=== PATIENT | male | born 1945 | race Caucasian/White ===

== ENCOUNTER 2017-10-03 07:37 | Day surgery (SDC) | payer OTHER ==
[~2017-10-03] VITALS: Ht 170.2 cm; Wt 95.3 kg
[~2017-10-03 07:37] MED LIST: SYNTHROID125 MCG PO
[2017-10-03] MEDS ORDERED: CLARITIN10 M2 PO (08:00)
[2017-10-03] MEDS ORDERED: VENTOLIN HFA18 GM INH (08:01)
[2017-10-03] MEDS ORDERED: BAYER CHEWABLE81 MG PO (08:02)
--- NOTE | 2017-10-03 09:37 | NUR ---
10/03/17 0937 Merline Hoffman 0975-PATIENT ARRIVED TO PACU ON 2L NC O2 SAT 99% PATIENT REACTIVE TO VOICE OPENS EYES DROWSY. ABDOMEN ROUND AND SOFT. RR EVEN.
--- NOTE | 2017-10-04 10:24 | OR ---
[facility] [address] [place], [place] [address] Signed DATE OF OPERATION: 10/03/2017 SURGEON: Chelo Talamantes MD PREOPERATIVE DIAGNOSIS: Personal history of hyperplastic polyps in 2005. POSTOPERATIVE DIAGNOSES: 1. A 4-mm prostate nodule. 2. A 3-mm cecal polyp. 3. A 3-mm polyp, ileocecal valve. 4. A 4-mm polyp, proximal right colon. 5. A 5-mm polyp at 20 cm. 6. Moderate external and internal hemorrhoids. 7. Moderate left-sided diverticulosis. PROCEDURE PERFORMED: Colonoscopy without biopsy. ESTIMATED BLOOD LOSS: None. INDICATIONS FOR PROCEDURE: Slick is a 72-year-old gentleman, who had hyperplastic polyps removed back in 2005. He returns now for his followup colonoscopy. He said he has no lower GI complaints. There is no family history of colon cancer or polyps. I gave him a pamphlet on colonoscopy. We looked at that together along with the risks including, but not limited to gas bloating, crampy abdominal pain, bleeding, perforation, requiring surgery, and missed diagnosis. We also discussed the need for IV conscious sedation. He had expressed understanding and wished to proceed. PROCEDURE NOTE: Jean was taken into our endoscopy suite and placed in the left lateral decubitus position. He was given 6 mg of Versed and 100 mcg of fentanyl to cover the case. A digital rectal exam was performed and he does have a 4-mm prostate nodule in the inferior portion of the prostate somewhat in the midline. This should definitely be evaluated more thoroughly. The adult colonoscope was then introduced and advanced all around into the cecum under direct visualization of the camera without difficulty. His prep was good. The scope was slowly withdrawn. The above-mentioned polyps were easily removed with the help of hot biopsy forceps. We also noticed he has moderate left-sided Electronically Signed By: CHELO TALAMANTES MD 10/04/17 [facility] PATIENT NAME: SLICK ASHTON OPERATIVE REPORT DATE OF : 49 REPORT #: [id number] PHYSICIAN: CHELO TALAMANTES MD PCP: CICI MATTSON MD REPORT IS CONFIDENTIAL AND NOT TO BE RELEASED WITHOUT AUTHORIZATION [facility] [address] [place], [place] [address] Signed diverticulosis. They are moderate in size, moderate in number, and scattered about. Once in the rectum, the scope had been retroflexed and he does have some internal hemorrhoid columns. They were [id number], but the external hemorrhoid columns were definitely moderate in size. After this, the gas was suctioned out and the colonoscope removed. Jean tolerated the procedure quite well. RECOMMENDATIONS: I will see Jean back in my office in 7 to 14 days to review his pathology results. He needs to have his prostate nodule further evaluated. Chelo Talamantes MD ALB/MODL /[id number] cc: BREANNA Pearson MD Patient's Chart Cici Mattson MD Copies: ADOLPH ROMERO NP, ANDREW L MD HARRISON, RUSSELL BARR MD ~ Electronically Signed By: CHELO TALAMANTES MD 10/04/17 1024 PATIENT NAME: SLICK ASHTON OPERATIVE REPORT DATE OF : 49 REPORT #: [id number] PHYSICIAN: CHELO TALAMANTES MD PCP: CICI MATTSON MD REPORT IS CONFIDENTIAL AND NOT TO BE RELEASED WITHOUT AUTHORIZATION
== END 2017-10-03 10:13 | disposition home or self-care (01) ==
LOC: DS 07:37 → OPS 07:37 → DS 09:45 → OPS 09:45
PROVIDERS: Colon & Rectal Surgery
PROC: 0DBE8ZZ Excision of Large Intestine, Via Natural or Artificial Opening Endoscopic (ICD-10-PCS; 2017-10-03)
PROC: 0DBF8ZZ Excision of Right Large Intestine, Via Natural or Artificial Opening Endoscopic (ICD-10-PCS; 2017-10-03)
PROC: 0DBC8ZZ Excision of Ileocecal Valve, Via Natural or Artificial Opening Endoscopic (ICD-10-PCS; 2017-10-03)
PROC: 0DBH8ZZ Excision of Cecum, Via Natural or Artificial Opening Endoscopic (ICD-10-PCS; principal; 2017-10-03 09:15)
DX: Z12.11 Encounter for screening for malignant neoplasm of colon (principal); D12.2 Benign neoplasm of ascending colon; D12.0 Benign neoplasm of cecum; K63.5 Polyp of colon; K64.8 Other hemorrhoids; K64.4 Residual hemorrhoidal skin tags; N40.2 Nodular prostate without lower urinary tract symptoms; K57.30 Diverticulosis of large intestine without perforation or abscess without bleeding; J45.909 Unspecified asthma, uncomplicated; E78.5 Hyperlipidemia, unspecified; E03.9 Hypothyroidism, unspecified; M19.90 Unspecified osteoarthritis, unspecified site; Z98.890 Other specified postprocedural states; Z86.010 Personal history of colon polyps; Z79.82 Long term (current) use of aspirin; Z79.899 Other long term (current) drug therapy
CPT/HCPCS: 99153; G0500; J2250; J3010; J7120

== ENCOUNTER 2024-05-27 06:00 | Day surgery (SDC) | payer MEDICARE, OTHER ==
[2024-05-20 09:40] VITALS: BP 128/74
[~2024-05-27] VITALS: Ht 170.2 cm; Wt 77.3 kg
[~2024-05-27 06:00] MED LIST changes: +ASMANEX220 MC2 INH; +BAYER CHEWABLE81 MG PO; +CLARITIN10 M2 PO; +LACTATED RINGER'S 1,000 ML IV SCH; +LIPITOR40 MG PO; +OMEPRAZOLE20 M1 PO; +VENTOLIN HFA18 GM INH
[2024-05-27 06:19] VITALS: BP 129/71
[2024-05-27] MEDS ORDERED: iopamidoL 30 ML VIAL ONE (06:21)
[2024-05-27] MEDS ORDERED: LIDOCAINE 1% W/ EPI 1:200,000 30 ML SDV ONE (06:22)
[2024-05-27] MEDS ORDERED: SODIUM CHLORIDE 0.9% 40 ML IV ONE (06:22)
[2024-05-27] MEDS ORDERED: BUPIVACAINE HCL 0.25% 50 ML MDV ONE (06:23)
[2024-05-27] MEDS ORDERED: CEFAZOLIN SODIUM 2 GM/20 ML SYR IV SCH (07:00)
[2024-05-27] MEDS ORDERED: HEParin SOD (PORCINE) 5,000 UNIT/ML SDV SUB-Q SCH (07:00)
[2024-05-27] MEDS ORDERED: LIDOCAINE HCL 1% 5 ML SDV INJ ONE (07:00)
[2024-05-27] MEDS ORDERED: metroNIDAZOLE/SODIUM CHLORIDE 500 MG/100 ML PIGGYBACK IV SCH (07:00)
[2024-05-27] MEDS ORDERED: IBLOOD GLUCOSE TEST STRIP 1 EA TEST VI PRN ×2 (07:00→08:00)
[2024-05-27] MEDS ORDERED: DEXAMETHASONE SOD PHOS 4 MG/ML VIAL ONE (07:20)
[2024-05-27] MEDS ORDERED: SUCCINYLCHOLINE IN 0.9% NACL 200 MG/10 ML SYRINGE ONE (07:20)
[2024-05-27] MEDS ORDERED: ROCURONIUM BROMIDE 50 MG/5 ML SYR ONE (07:20)
[2024-05-27] MEDS ORDERED: SUGAMMADEX SODIUM 200 MG/2 ML ML ONE (07:20)
[2024-05-27] MEDS ORDERED: KETOROLAC TROMETHAMINE 30 MG/ML VIAL ONE (07:20)
[2024-05-27] MEDS ORDERED: ondansetron HCL 4 MG/2 ML VIAL ONE (07:20)
[2024-05-27] MEDS ORDERED: ACETAMINOPHEN 1,000 MG/100 ML VIAL ONE (07:20)
[2024-05-27] MEDS ORDERED: LIDOCAINE HCL 2% 5 ML SDV ONE (07:20)
[2024-05-27] MEDS ORDERED: fentaNYL citrate 100 MCG/2 ML VIAL ONE ×2 (07:20→08:10)
[2024-05-27] MEDS ORDERED: propofoL 200 MG/20 ML VIAL ONE (07:20)
[2024-05-27] MEDS ORDERED: LIDOCAINE HCL 2% 20 MG/ML VIAL INJ ONE (07:20)
[2024-05-27] MEDS ORDERED: NALOXONE HCL 0.4 MG SYR IV PRN ×2 (08:00→09:00)
[2024-05-27] MEDS ORDERED: fentaNYL citrate 50 MCG/ML SDV IV PRN (08:00)
[2024-05-27] MEDS ORDERED: PROCHLORPERAZINE EDISYLATE 10 MG/2 ML VIAL IV PRN (08:00)
[2024-05-27] MEDS ORDERED: droPERidol 5 MG/2 ML VIAL IV PRN (08:00)
[2024-05-27] MEDS ORDERED: HYDROmorphone HCL 1 MG/ML SYR IV PRN ×2 (08:00→09:00)
[2024-05-27] MEDS ORDERED: ondansetron HCL 4 MG/2 ML VIAL IV PRN ×2 (08:00→09:00)
[2024-05-27] MEDS ORDERED: OXYCODONE HCL 5 MG TAB PO PRN (09:00)
--- NOTE | 2024-05-27 09:13 | NUR ---
05/27/24 0913 Beatriz Whitman 0849- PT ARRIVES TO THE PACU WITH AN ORAL AIRWAY IN PLACE. BREATHING IS EVEN AND UNLABORED. SURGICAL SITES ARE CDI. VSS. PT IS LAYING IN SEMIFOWLERS, AND IS NONREACTIVE TO VERBAL AND TACTILE STIMULI. PT HAS 6L OF O2 VIA MASK AND LR IS INFUSING IN HIS R FOREARM. ICE PACK PUT IN PLACE AND PILLOW PUT IN PLACE FOR SPLINTING. 0851- PT MOVING HIS HANDS UP AND REACHING TOWARD HIS FACE AND BRINGING HIS KNEES UP. SOME FACIAL GRIMACING NOTED. PT IS UNABLE TO FOLLOW DIRECTIONS AT THIS TIME. 0854- PT OPENS HIS EYES BREIFLY TO VERBAL AND TACTILE STIMULI. PT FOLLOWS DIRECTIONS TO OPEN HIS MOUTH. ORAL AIRWAY REMOVED AT THIS TIME. BREATHING IS EVEN AND UNLABORED. 6L OF O2 IN PLACE VIA MASK AT THIS TIME. PT FACIAL GRIMACING IS RESOLVED AND PT RESTING WITH NO APPARENT ISSUES. 0910- PT CONTINUES TO REST WITH NO APPARENT DISTRESS. PT EASILY WAKES TO VERBAL STIMULI. PT REPORTS 5-6/10 0N THE PAIN SCALE AND REPORTS THAT THE PAIN IS TOLERABLE. O2 MASK REMOVED AT THIS TIME. PT IS ABLE TO FOLLOW DIRECTIONS AND COUGHS. PT INSTRUCTED TO COUGH AND DEEP BREATHE. PT RESTING WITH EYES CLOSED.
[2024-05-27 09:26] VITALS: BP 124/65
--- NOTE | 2024-05-27 09:41 | NUR ---
0926- PT ARRIVES FROM PACU. SURGICAL SITES ARE CDI. VSS. PT REPORTS PAIN THAT IS TOLERABLE AT A 5 OR 6 OUT OF 10. PT DENIES NAUSEA. PT RESTING WITH EYES CLOSED. AT BEDSIDE. DISCHARGE CRITERIA TALKED ABOUT AND UNDERSTOOD. WILL PROVIDE WATER AND SNACK. BED LOCKED AND IN THE LOWEST POSITION AND CALL LIGHT IN REACH.
[2024-05-27 10:23] VITALS: BP 115/65
--- NOTE | 2024-05-27 10:29 | NUR ---
1026- PT IS RESTING. PT TOLERATED PUDDING AND WATER WELL. PT TALKING WITH AND RN. PT REPORTS PAIN IS TOLERABLE AT THE 5-6/10. DC PLAN DISCUSSED, AND PT IS UNDERSTANDING. PT DENIES NAUSEA OR NEW NEEDS AT THIS TIME. CALL LIGHT IN REACH AND BED IS LOCKED AND IN THE LOWEST POSITION.
--- NOTE | 2024-05-27 10:45 | OR ---
[facility] [address] [place], [place] [address] Signed DATE OF OPERATION: 05/27/2024 SURGEON: Chelo Talamantes MD PREOPERATIVE DIAGNOSIS: Cholelithiasis with biliary colic. POSTOPERATIVE DIAGNOSIS: Cholelithiasis with biliary colic with chronic cholecystitis. PROCEDURE: Laparoscopic cholecystectomy with intraoperative cholangiogram. ESTIMATED BLOOD LOSS: None. FINDINGS: Slick indeed had multiple small, almost miliary stones in his gallbladder. The gallbladder was chronically inflamed and quite friable and came apart quite readily. The intraoperative cholangiogram did not show any filling defects in the cystic duct or the common bile duct. The contrast flowed nicely into the duodenum. INDICATIONS FOR THE PROCEDURE: Slick is a 78-year-old gentleman, who I have known for many years. He stays in good shape, and overall is healthy and has good functional status. He said for at least the last five maybe six years he has been having trouble with right upper quadrant abdominal pain radiating through to his back. He had reviewed an enormous amount of his records. I could see the gallstones back in January [address] scan. He said the symptoms have been getting worse and more frequent. He went to upper [facility] in 2019 for an upper endoscopy at the age of 74, this was unremarkable. The upper tier mentioned the gallstones has a possibility for his pain. The blood work in February of 2024 of course was unremarkable. An ultrasound in March 2024 of course confirmed the gallstones and probably some sludge. The gallbladder wall was not thickened. The common bile duct was unremarkable at 5.7 mm. Because of his ongoing and escalating symptoms, he was asked to see me with respect to the above as a local general surgeon. He had come to the office with his . I had given him our brochure on the gallbladder. We went through it page by page. He understands the location and function of the gallbladder. He understands gallstones. We discussed laparoscopic versus open cholecystectomy. He understands the concept of ERCP. We reviewed the expected intraop and postop course. There is risk including, but not limited to bleeding, infection, Electronically Signed By: CHELO TALAMANTES MD 05/27/24 1045 PATIENT NAME: SLICK ASHTON OPERATIVE REPORT DATE OF : 49 REPORT #: [id number] PHYSICIAN: CHELO TALAMANTES MD PCP: CICI MATTSON MD REPORT IS CONFIDENTIAL AND NOT TO BE RELEASED WITHOUT AUTHORIZATION [facility] [address] [place] [address] Signed scarring, change in contour of the skin, damage to bowel, damage to the main bile duct, incisional hernias and other unforeseen comorbidities including common bile duct stones. He had expressed understanding and wished to proceed. DESCRIPTION OF PROCEDURE: I met with him and his in our preop area. The team was able to very clearly review his symptoms with me. After this, we took him into the operating room and placed him in the supine position. He was placed under general endotracheal tube anesthesia. He was given preoperative antibiotics along with subcutaneous heparin. SCDs were utilized. He was then prepped and draped in the usual sterile fashion. All trocars were placed in the usual positions under direct visualization of camera without difficulty. Pictures were taken throughout for photodocumentation. The gallbladder was grasped and elevated in the right upper quadrant. We dissected out the triangle of [place]ot with the [place] dissector. Two clips were placed on either side of the cystic artery and it was divided. We found the gallbladder to be quite friable. In total, there were four different areas, where our graspers had gone through the wall. We had suctioned out copious amounts of bile in small stones. Intraoperative cholangiocatheter was inserted into the cystic duct without difficulty. Intraoperative cholangiogram was unremarkable. We did not see any filling defects in the long narrow cystic duct nor the common bile duct. The contrast flowed quite nicely into the duodenum. The cystic duct stump was secured with the PDS Endoloop. Two clips were placed across the cystic duct stump to liliana its location. After this, the gallbladder was slowly and carefully removed from the gallbladder fossa with the help of the cautery and placed into an EndoCatch bag. We then irrigated and suctioned out the right upper quadrant with copious amounts of saline. After this, we used our laparoscopic suturing device to pass 0-Vicryl suture on either side of the fascia, subxiphoid trocar site. This was tied down to close this fascia primarily. All the gas was then allowed to escape and all the trocars were removed along with the gallbladder. The gallbladder was passed off to the circulating nurse on the back table for photodocumentation. He still had a large number of small stones inside the gallbladder. The gallbladder again was quite thin and friable. We closed the fascia of the supraumbilical trocar site with interrupted [id number]-lm-[id number] and simple 0-Vicryl sutures. Local anesthetic was injected into all trocar sites. Each trocar site was irrigated and suctioned out until clear. The skin and dermis of each trocar site were closed with interrupted 3-0 subcuticular Monocryl sutures. Dry gauze and tape was applied to all incisions. After this, Slick was awakened from his anesthesia, extubated in the OR, and taken to the recovery room in stable condition. Chelo Talamantes MD Electronically Signed By: CHELO TALAMANTES MD 05/27/24 1045 PATIENT NAME: SLICK ASHTON OPERATIVE REPORT DATE OF : 49 REPORT #: [id number] PHYSICIAN: CHELO TALAMANTES MD PCP: CICI MATTSON MD REPORT IS CONFIDENTIAL AND NOT TO BE RELEASED WITHOUT AUTHORIZATION [address] [place], [place] [address] Signed ALB/MODL /[id number] cc: Cici Mattson MD [facility] MD Chelo Nye MD Patient Chart Copies: CICI MATTSON MD, Randy J MD BOWER, ANDREW L MD ~ Electronically Signed By: CHELO TALAMANTES MD 05/27/24 1045 PATIENT NAME: SLICK ASHTON OPERATIVE REPORT DATE OF : 49 REPORT #: [id number] PHYSICIAN: CHELO TALAMANTES MD PCP: CICI MATTSON MD REPORT IS CONFIDENTIAL AND NOT TO BE RELEASED WITHOUT AUTHORIZATION
[2024-05-27] MEDS ORDERED: OXYCODONE HCL5 MG PO (10:55)
[2024-05-27 11:55] VITALS: BP 115/66
--- NOTE | 2024-05-27 12:11 | NUR ---
1045- PT UP TO THE SIDE OF THE BED. PT DENIES NAUSEA AND FEELS THAT HE CAN GET AROUND SAFELY. PT UP TO THE RESTROOM, WITH A STEADY AND EVEN GAIT WITH NO ASSISTANCE. PT IS ABLE TO URINATE 200ML. 1155- VSS. DISCHARGE INFORMATION GIVEN AND EDUCATION. PT AND DENY QUESTIONS OR CONCERNS. PT IS ABLE TO DRESS INDEPENDENTLY. IV REMOVED. PT IS ABLE TO AMBULATE TO THE WHEELCHAIR WITH NO ISSUES. PT DENIES NAUSEA AND REPORTS THAT PAIN IS TOLERABLE. PERSCRIPTION WITH DISCHARGE TEACHING. PT DC TO FAMILY VEHICLE WITH NO ISSUES.
[2024-05-27] MEDS ORDERED: SEVOFLURANE 250 ML BTL INH ONE (15:01)
--- NOTE | 2024-05-29 14:37 | PATH ---
[facility] [address] [place], [place] [address] Signed SPECIMEN(S): A GALLBLADDER AND CONTENTS SPECIMEN SOURCE: A. GALLBLADDER AND CONTENTS CLINICAL HISTORY: Chronic calculus cholecystitis FINAL PATHOLOGIC DIAGNOSIS: Gallbladder, cholecystectomy: - Chronic calculous cholecystitis BRP MICROSCOPIC EXAMINATION: Histologic sections of all submitted blocks are examined by light microscopy. These findings, together with the gross examination, support the pathologic diagnosis. GROSS DESCRIPTION: The specimen, labeled and designated "Brendon, gallbladder and stones," is received in formalin and consists of Specimen: Previously incised gallbladder. Dimensions: 5.6 x 2.5 x 1.2 cm. Serosa: Noel-green, smooth. Cystic Duct: Unobstructed. Calculi: 2.7 x 0.8 x 0.4 cm aggregate of irregular black cholelith fragments. Mucosa: Noel, velvety. Wall thickness: 0.1 cm. Lymph node: No pericystic lymph nodes are grossly identified. Additional: None. Residential Team Leader sections are submitted in (A1). TO (under the direct supervision of a pathologist) The Gross Description was prepared using a voice recognition system. The report was reviewed for accuracy; however, sound-alike word errors, addition and/or deletions may occur. If there is any question about this report, please contact Client Services. ADDITIONAL NOTES: Immunohistochemical and/or in situ hybridization studies if performed in this case included appropriate positive controls that reacted as expected. This test was developed and its performance PATIENT NAME: KAREN ASHTON PATHOLOGY DATE OF : 49 REPORT #: [id number] PHYSICIAN: NANI MEJIA PCP: CICI CALLES MD REPORT IS CONFIDENTIAL AND NOT TO BE RELEASED WITHOUT AUTHORIZATION [facility] [address] [place] [address] [place], [place] [address] Signed characteristics determined by [facility]. It has not been cleared or approved by the U.S. Food and Drug Administration. The FDA has determined that such clearance or approval is not necessary. This test is used for clinical purposes. It should not be regarded as investigational or for research. [facility] is certified under the Clinical Laboratory Improvement Amendments of 1988 (CLIA) as qualified to perform high complexity clinical laboratory testing. PERFORMING LABORATORY: Technical preparation was performed by [facility], [address] [place] [address] (CLIA#: [id number]). Professional interpretation was performed by [facility], [address] [place] [address] (CLIA#: [id number]). Diagnostician: Juan Rangel MD Pathologist Electronically Signed 05/29/2024 Copies: ~ PATIENT NAME: KAREN ASHTON PATHOLOGY DATE OF : 49 REPORT #: [id number] PHYSICIAN: [facility] PCP: CICI CALLES MD REPORT IS CONFIDENTIAL AND NOT TO BE RELEASED WITHOUT AUTHORIZATION
== END 2024-05-27 11:55 | disposition home or self-care (01) ==
LOC: DS 06:00
PROVIDERS: ATTEND Colon & Rectal Surgery
PROC: BF03YZZ Plain Radiography of Gallbladder and Bile Ducts using Other Contrast (ICD-10-PCS; 2024-05-27)
PROC: 0FT44ZZ Resection of Gallbladder, Percutaneous Endoscopic Approach (ICD-10-PCS; principal; 2024-05-27 07:30)
DX: K80.10 Calculus of gallbladder with chronic cholecystitis without obstruction (principal); E03.9 Hypothyroidism, unspecified; E78.5 Hyperlipidemia, unspecified; J45.909 Unspecified asthma, uncomplicated; Z79.890 Hormone replacement therapy; Z79.899 Other long term (current) drug therapy
CPT/HCPCS: 00790; 74300; 88304; J0131; J0330; J0690; J1100; J1644; J1885; J2003; J2405; J2704; J3010; J3490; J7121; Q9967